=== PATIENT | female | born 1975 | race Caucasian/White ===

== ENCOUNTER 2020-07-22 08:53 | Outpatient (REF) | payer OTHER, SELFPAY ==
--- NOTE | ~2020-07-22 | MM_ITS ---
EXAMINATION: MM SCREENING DIGITAL BREAST TOMOSYNTHESIS, BILATERAL CLINICAL INFORMATION: Screening. Asymptomatic. The lifetime risk of breast cancer based on the Tyrer-Cuzick Model is 8%. COMPARISON: Mammography: 03/12/2019 and outside exams from [facility] dated 12/10/2017, , 11/15/2016, 05/22/2016, 11/15/2015. TECHNIQUE: Digital breast tomosynthesis is performed in both the craniocaudal and mediolateral oblique views along with computer-aided detection (CAD). Synthesized 2D images are generated from the tomosynthesis. FINDINGS: There are scattered areas of fibroglandular density (ACR BI-RADS breast composition Category b). The right breast is stable from prior studies with no developing density or interval mass or architectural abnormality. Neither breast shows abnormal calcifications. The axilla and skin contours are unremarkable. The left MLO view has irregular asymmetric density posterior upper aspect 11 cm from nipple mid depth on tomography, possibly related to summation artifact from benign fibroglandular tissue posterior 12:00 position on CC projection. Patient will be recalled for additional imaging. MM/MM tomosynthesis screening BI IMPRESSION: 1. Asymmetric density posterior upper left breast on MLO view, possibly summation artifact from fibroglandular tissue 12:00 position on CC projection. 2. No mammographic evidence of malignancy. ASSESSMENT: BI-RADS 0: Incomplete - Need Additional Imaging Evaluation RECOMMENDATION: 1. Additional views of the left breast (3-D spot MLO, 3-D changed angle MLO). 2. Targeted ultrasound if warranted after review of the additional views. 3. Radiology department staff will contact the patient for additional imaging. This patient's information was entered into a reminder system with a target due date for their next mammogram.
== END 2020-07-22 08:54 | disposition home or self-care (01) ==
LOC: HO.MAMMO 08:53
PROVIDERS: Visit Provider Internal Medicine
DX: Z12.31 Encounter for screening mammogram for malignant neoplasm of breast (principal)
CPT/HCPCS: 77063; 77067

== ENCOUNTER 2020-08-04 14:38 | Outpatient (REF) | payer OTHER, SELFPAY ==
--- NOTE | ~2020-08-04 | MM_ITS ---
EXAMINATION: MM DIAGNOSTIC DIGITAL BREAST TOMOSYNTHESIS, LEFT US DIAGNOSTIC ULTRASOUND BREAST, LEFT CLINICAL INFORMATION: Recall from screening for irregular asymmetric density posterior upper left breast approximately 11 cm from nipple. COMPARISON: Mammography: 07/22/2020, 03/12/2019; outside mammography from [facility] 12/10/2017, 11/15/2016, 05/22/2016, 11/21/2015, 11/15/2015 TECHNIQUE: Digital breast tomosynthesis is performed. 2D images are generated from the tomosynthesis. The following views are obtained: 3-D Spot MLO, 3-D MLO changed angle. Ultrasound left breast is targeted to the posterior upper breast. Patient is imaged supine with left arm elevated as well as semiupright with left arm down. Grayscale imaging and color Doppler are performed without and with harmonics. FINDINGS: There are scattered areas of fibroglandular density (ACR BI-RADS breast composition Category b). The additional views demonstrate an irregular asymmetric density posterior upper breast approximately 11 cm from nipple at 11:00 position. The finding measures 1.3 cm across with the central area fatty attenuation. The asymmetric density is more prominent since outside imaging 2017 and not seen on more remote outside imaging 2015. Ultrasound demonstrates subtle area of mixed hyperechoic and irregular central hypoechoic echogenicity 11:00 position 11 cm from nipple with overall size approximately 0.8 cm. No increased or decreased through transmission of sound or associated color flow. This likely corresponds to the finding on mammography. Results are discussed with the patient at time of visit using an staff interpreter. The appearance is suspicious for sequela from prior trauma. Discussion with the patient reveals no recollection of prior left breast trauma to splaying the imaging findings. Management options discussed with the patient. The location may be difficult for stereotactic sampling and would be amenable to sampling under ultrasound guidance. Patient is in favor of percutaneous biopsy. MM/MM tomosynthesis added views L IMPRESSION: Irregular asymmetric density posterior upper left breast 11:00 position with probable ultrasound correlate. Although the features are suspicious for fat necrosis, there is no known prior history of left breast trauma to correspond to this area. Results and recommendation called to certified medical coding specialist (Francine) for Dr. Luca Ferro on 08/04/2020. ASSESSMENT: BI-RADS 4: Suspicious RECOMMENDATION: Ultrasound-guided core biopsy left breast mass. This patient's information was entered into a reminder system with a target due date for their next mammogram.
== END 2020-08-04 14:39 | disposition home or self-care (01) ==
LOC: HO.MAMMO 14:38
PROVIDERS: Visit Provider Internal Medicine
DX: N64.89 Other specified disorders of breast (principal)
CPT/HCPCS: 76642; 77061; 77065

== ENCOUNTER 2020-08-17 09:37 | Outpatient (REF) | payer OTHER, SELFPAY ==
--- NOTE | ~2020-08-17 | MM_ITS ---
Postprocedure left mammography is described in single combined report along with the ultrasound-guided left breast biopsy under accession number [id number].
--- NOTE | ~2020-08-17 | US_ITS ---
EXAMINATION: ULTRASOUND GUIDED CORE BIOPSY BREAST, LEFT POST PROCEDURE DIGITAL MAMMOGRAM, LEFT CLINICAL INFORMATION: Irregular asymmetric density posterior upper left breast with probable ultrasound correlate. Imaging findings may suggest fat necrosis although there is no known prior history left breast trauma corresponding to this area. COMPARISON: Mammography 07/22/2020, 08/04/2020, targeted left breast ultrasound 08/04/2020. FINDINGS: Proper informed consent is obtained from the patient after discussion of the procedure, potential risks and complications, and alternatives. Patient was given an opportunity for questions. The patient appeared to understand. The patient consented to the procedure and signed the consent form. Hospital provided registered public health nurse assisted for the consent. GUIDANCE: Ultrasound-guided; aseptic technique. LESION: Mixed hyperechoic and central irregular hypoechoic area posterior 11:00 position measuring 1.3 cm. Imaging findings may suggest fat necrosis. No known prior history left breast trauma corresponding to this area. APPROACH: Mediolateral. ANESTHESIA: 20 mL 1% lidocaine, half of the volume is used to elevate the target away from the chest wall. DERMATOTOMY: Single skin mona dermatotomy performed. NEEDLE: 14-gauge Achieve core biopsy device with 13.5-gauge co-axial guide needle. CORES: 6. CLIP: HydroMARK; shape: butterfly. POST PROCEDURE UNILATERAL DIGITAL MAMMOGRAM: The post biopsy mammogram is performed in separate room using separate digital mammography equipment from the biopsy procedure. CC and ML views are obtained. There are scattered areas of fibroglandular density (breast composition category: b). The clip marker is in position, corresponding to the vicinity of the asymmetric density on recent mammography. No gross hematoma. The patient tolerated the procedure well. No immediate complications. Home instructions reviewed with the patient. Final pathology results are pending. US/US breast ndl core biopsy LT IMPRESSION: 1. Status post ultrasound-guided core biopsy left breast. 2. Clip placed: HydroMARK; shape: butterfly. 3. Pathology pending. An addendum report will be issued.
== END 2020-08-17 09:38 | disposition home or self-care (01) ==
LOC: HO.MAMMO 09:37
PROVIDERS: Visit Provider Surgery
DX: R92.8 Other abnormal and inconclusive findings on diagnostic imaging of breast (principal)
CPT/HCPCS: 19083; 77065; 88305; 99202

== ENCOUNTER → 2020-08-22 08:53 | Outpatient (BNVA) | payer OTHER, SELFPAY | PROVIDERS: PCP Internal Medicine; Referring Provider Internal Medicine; Visit Provider Surgery | DX: R92.8 Other abnormal and inconclusive findings on diagnostic imaging of breast (principal) | CPT/HCPCS: 99212 ==

== ENCOUNTER 2020-08-30 06:37 | Day surgery (SDC) | payer OTHER, SELFPAY ==
--- NOTE | 2020-08-29 08:29 | HO.ANESPROP2 ---
Documented by User: Clare Coates 08/29/20 08:30 HPI - Anesthesia Eval Consult details Narrative: 45yo F for Left Breast Biopsy Needle Localization, Lumpectomy PMFSH Active Problems Active Problems: All Active Problems (Updated 08/17/20 @ 08:39 by Jose R Sosa MD) Abnormal ultrasound of breast (Acute) Family History Family History Paternal Aunt Stomach cancer Maternal Uncle Cancer of unknown origin Surgical History Surgical History History of 2 sections History of cholecystectomy History of partial hysterectomy (2019) Social History Social History Alcohol intake: never Patient Tobacco Use Status: Never used Tobacco Use of substances other than those prescribed or required for medical reasons: No Are you DNR?: No Advance Directives: No Advance Directives Information Provided: Yes Recently lost weight without trying: No Patient : No FDLMP: 2-3 years ago Meds Allergies Allergy/AdvReac Type Severity Reaction Status Date / Time No Known Allergies Allergy Verified 08/17/20 08:36 Home Medications Medication Instructions Recorded Confirmed Last Taken Type pregabalin 75 mg capsule 75 mg PO BID 08/17/20 08/22/20 Unknown History Exam Exam Date and Time: August 29, 2020828 Assessment and Plan Assessment Anesthesia Assessment: Chart Reviewed Documented by User: Sandie Kamara 08/30/20 09:09 PMFSH Family History Family History Paternal Aunt Stomach cancer Maternal Uncle Cancer of unknown origin Surgical History Surgical History History of 2 sections History of cholecystectomy History of partial hysterectomy (2019) Social History Social History Alcohol intake: never Patient Tobacco Use Status: Never used Tobacco Use of substances other than those prescribed or required for medical reasons: No Are you DNR?: No Advance Directives: No Advance Directives Information Provided: Yes Recently lost weight without trying: No Patient : No FDLMP: 2-3 years ago Meds Allergies Allergy/AdvReac Type Severity Reaction Status Date / Time No Known Allergies Allergy Verified 08/17/20 08:36 Home Medications Medication Instructions Recorded Confirmed Last Taken Type pregabalin 75 mg capsule 75 mg PO BID 08/17/20 08/22/20 Unknown History Exam Airway Mallampati Class: II TM Dist: >3cm Neck ROM: Full Assessment and Plan Assessment Anesthesia Assessment: Anesthesia Plan Discussed and Chart Reviewed Final Anesthetic Review NPO: Yes ASA Class: I Final Preanesthetic Review: No Changes in Pt Med Stat, Meds/Allgs Chart Reviewed, Consent Obtained/Reviewed and Anes Risks/Benef Reviewed Patient Risk: Low Procedure Risk: Low Assessment/Block/Sedation in SS: Assess/Block/Sedation-SS Anesthetic Plan Anesthetic Plan: MAC: Disposition: Standard PACU
--- NOTE | ~2020-08-30 | MM_ITS ---
EXAMINATION: MM MAMMOGRAM GUIDED NEEDLE LOCALIZATION BREAST, LEFT MM NEEDLE LOCALIZATION SPECIMEN FROM THE LEFT BREAST CLINICAL INFORMATION: Irregular asymmetric density posterior upper left breast status post ultrasound-guided biopsy 07/18/2020 (benign breast tissue with stromal fibrosis. No atypia or malignancy). Further assessment with excisional biopsy. COMPARISON: Mammography 07/22/2020, 08/04/2020, 08/17/2020 TECHNIQUE NEEDLE LOC: Hospital provided molder closed molds assisted for the consent and throughout the procedure. Proper informed consent is obtained from the patient after discussion of the procedure, potential risks and complications, and alternatives including declining the procedure today. Patient was given an opportunity for questions. The patient appeared to understand. The patient consented to the procedure and signed the consent form. GUIDANCE: Digital mammography. APPROACH: Mediolateral. TARGET: Biopsy clip marker and asymmetric densities posterior upper left breast. ANESTHESIA: lidocaine 1%: 10 mL divided between 2 sites. LOCALIZATION MARKERS: [place] MammaLok x 2 (both 7.5 cm length). The skin is prepped and local anesthesia administered. The 2 localization needles are positioned from medial side, the anterior directed to the clip marker and the tandem more posterior directed to the parenchymal density. Position assessed with mammography. The wires are hooked into position. Union needle protector placed. The patient tolerated the procedure well and had no immediate complication. Procedure results discussed with Dr. Sosa prior to surgery. TECHNIQUE SPECIMEN RADIOGRAPH: Imaging of the excised specimen is performed using digital mammography in 1 view. FINDINGS SPECIMEN RADIOGRAPH: The specimen shows the 2 distal needles and 2 distal hookwires delivered intact. The biopsy clip marker is identified in the specimen. There are some faint scattered parenchymal densities in the tissue. Results were called to Dr. Jose R Sosa in the operating room at the time of imaging. MM/MM needle loc LT IMPRESSION: 1. Status post left breast needle localization with wire hooked into position. 2. Post operative specimen radiograph obtained.
--- NOTE | ~2020-08-30 | MM_ITS ---
EXAMINATION: MM MAMMOGRAM GUIDED NEEDLE LOCALIZATION BREAST, LEFT MM NEEDLE LOCALIZATION SPECIMEN FROM THE LEFT BREAST CLINICAL INFORMATION: Irregular asymmetric density posterior upper left breast status post ultrasound-guided biopsy 07/18/2020 (benign breast tissue with stromal fibrosis. No atypia or malignancy). Further assessment with excisional biopsy. COMPARISON: Mammography 07/22/2020, 08/04/2020, 08/17/2020 TECHNIQUE NEEDLE LOC: Hospital provided bilingual interpreter assisted for the consent and throughout the procedure. Proper informed consent is obtained from the patient after discussion of the procedure, potential risks and complications, and alternatives including declining the procedure today. Patient was given an opportunity for questions. The patient appeared to understand. The patient consented to the procedure and signed the consent form. GUIDANCE: Digital mammography. APPROACH: Mediolateral. TARGET: Biopsy clip marker and asymmetric densities posterior upper left breast. ANESTHESIA: lidocaine 1%: 10 mL divided between 2 sites. LOCALIZATION MARKERS: [place] MammaLok x 2 (both 7.5 cm length). The skin is prepped and local anesthesia administered. The 2 localization needles are positioned from medial side, the anterior directed to the clip marker and the tandem more posterior directed to the parenchymal density. Position assessed with mammography. The wires are hooked into position. Hardy needle protector placed. The patient tolerated the procedure well and had no immediate complication. Procedure results discussed with Dr. Sosa prior to surgery. TECHNIQUE SPECIMEN RADIOGRAPH: Imaging of the excised specimen is performed using digital mammography in 1 view. FINDINGS SPECIMEN RADIOGRAPH: The specimen shows the 2 distal needles and 2 distal hookwires delivered intact. The biopsy clip marker is identified in the specimen. There are some faint scattered parenchymal densities in the tissue. Results were called to Dr. Jose R Sosa in the operating room at the time of imaging. MM/MM needle loc ea add IMPRESSION: 1. Status post left breast needle localization with wire hooked into position. 2. Post operative specimen radiograph obtained.
[2020-08-30 07:07] VITALS: BMI 36.0
[2020-08-30 07:10] VITALS: BP 112/69; PULSE 65; RESP 16; TEMP 36.3; O2SAT 99
--- NOTE | 2020-08-30 08:10 | PC.NURSE ---
patient off unit to radiology for needle loc.
[2020-08-30] MEDS: Lactated Ringers 1,000 ML 100 ML IVCONT (08:59)
--- NOTE | 2020-08-30 09:09 | MHC.SHP ---
Pre-Procedural Eval Section A Date of Service: 08/30/20 The patient is an INPATIENT: No Changes since office visit: Yes Patient answered all questions; No Cold of Flu in the past 2 weeks, No New Medical Problems and No Changes in Medication The History & Physical has been completed within 30 days and I have reviewed it.: Yes Section B Chief Complaint: Abnormal ultrasound of breast Allergies: Allergies Allergy/AdvReac Type Severity Reaction Status Date / Time No Known Allergies Allergy Verified 08/17/20 08:36 Plan Diagnosis/Plan: Unchanged I have reviewed the history and physical and performed a pertinent physical examination on my patient. No changes have occurred unless specified.
[2020-08-30 10:30] VITALS: BP 113/59; PULSE 65; RESP 14; TEMP 36.4; O2SAT 97
--- NOTE | 2020-08-30 10:32 | P.OP_ITS ---
Operative Note Operative Note Date of Service: 08/30/20 Narrative: Preoperative diagnosis: Fibrosis left breast Postoperative diagnosis: Same Procedure: Left breast lumpectomy with needle localization Surgeon: Jose R Sosa MD Histopathology Technician: No physician Anesthesia: Mac Indications for procedure: 45-year-old female with a recent mammogram and ultrasound which revealed a density in the left breast. Subsequent core biopsy revealed stromal fibrosis. Wider excision was recommended to assure complete removal. Operative findings: Specimen x-ray confirmed the marking clip within the specimen. Gross pathology confirmed biopsy cavity within the specimen. Specimen: Left breast lumpectomy Estimated blood loss: 2 mL Complications: None Procedure details: Patient was brought to the OR placed in a supine position. After administering sedation the patient's left breast was prepped with ChloraPrep and draped in a sterile fashion. A surgical time-out was called the consent confirmed. Patient received preoperative antibiotics and Venodyne boots were in place. Local anesthesia consisting of 0.25% Sensorcaine with epinephrine was infiltrated between the localizing needles in the upper inner quadrant of the left breast. A transverse incision was then made to include the 2 needle tracks in the left upper inner quadrant. This was then carried down through to subcutaneous tissue. Superior and inferior skin flaps were then created with electrocautery. A core of tissue surrounding the 2 needles was then obtained using electrocautery. This was begun at the medial margin which was continued down to the posterior margin. The margin was then dissected off the chest wall beginning in the superior then inferior margin. Finally the lateral margin was obtained. The lesion was then marked with a long suture at the lateral margin, short suture at the superior margin and loop suture at the deep/posterior margin. This was sent to pathology for immediate gross and specimen x-ray. When the lesion was confirmed within the specimen, deep breast tissue was closed using interrupted 3-0 Polysorb sutures. Superficial breast tissue was reapproximated using interrupted 3-0 Polysorb sutures. Dermis was reapproximated using interrupted 3-0 Polysorb sutures. Skin was then closed using 4-0 Polysorb followed by Steri-Strips 2 x 2 gauze and Tegaderm. The patient tolerated the procedure well. Sponge, instrument, and needle counts were reported as correct. The patient was transferred to PACU in stable condition.
[2020-08-30 10:45] VITALS: BP 119/89; PULSE 63; RESP 16; TEMP 36.1; O2SAT 100
[2020-08-30] MEDS: oxyCODONE HCl Immed Release 5 MG TABLET PO (10:46)
== END 2020-08-30 11:30 | disposition home or self-care (01) ==
PROVIDERS: PCP Internal Medicine; Visit Provider Surgery
PROC: (CPT 19301; principal; 2020-08-30 09:10)
PROC: (CPT 19301; 2020-08-30 09:10)
DX: N60.32 Fibrosclerosis of left breast (principal); N64.1 Fat necrosis of breast; Z90.711 Acquired absence of uterus with remaining cervical stump; Z90.49 Acquired absence of other specified parts of digestive tract
CPT/HCPCS: 19301; 19281; 19282; 88307; 88329; A4648; J0690; J1100; J2250; J2405; J3010

== ENCOUNTER → 2020-09-07 14:05 | Outpatient (BNVA) | payer OTHER, SELFPAY | PROVIDERS: PCP Internal Medicine; Referring Provider Internal Medicine; Visit Provider Surgery | DX: N64.2 Atrophy of breast (principal); R92.8 Other abnormal and inconclusive findings on diagnostic imaging of breast | CPT/HCPCS: 99212 ==

== ENCOUNTER 2020-10-12 08:37 | Outpatient (REF) | payer OTHER, SELFPAY ==
--- NOTE | 2020-10-12 08:43 | EMG_ITS ---
Left median and ulnar motor and sensory studies were performed. Left radial sensory study was performed and paraspinal muscles were tested. IMPRESSION: 1. Mild left median neuropathy across carpal tunnel. 2. Mild left ulnar neuropathy across cubital tunnel. MD AYLA Russo/SUNNY / [id number]
== END 2020-10-12 08:38 | disposition home or self-care (01) ==
LOC: HO.NEURO 08:37
PROVIDERS: Visit Provider Pediatrics
DX: G56.02 Carpal tunnel syndrome, left upper limb (principal)
CPT/HCPCS: 95860; 95886; 95909